=== PATIENT | female | born 1980 | race Two or more races ===

== ENCOUNTER 2017-01-24 18:40 | Emergency (ER) | payer BC ==
[~2017-01-24] VITALS: Ht 167.6 cm; Wt 52.2 kg
[~2017-01-24 18:40] MED LIST: NORE1TAB56 PO
[2017-01-24 18:53] VITALS: BP_SYST 94
[2017-01-24] MEDS ORDERED: KETOROLAC TROMETHAMINE 30 MG VIAL IVP ONE (19:45)
[2017-01-24 19:53] LABS: HEMATOCRIT 38.2 % (36-48); HEMOGLOBIN 12.6 g/dL (12.0-16.0); MEAN CORPUSCULAR HEMOGLOBIN 28 pg (27-31); MEAN CORPUSCULAR HGB CONC 33 % (32-36); MEAN CORPUSCULAR VOLUME 83 fL (79.0-98.0); PLATELET COUNT (AUTO) 229 K/uL (130-430); RED BLOOD CELL COUNT(AUTO) 4.58 MIL/uL (4.2-6.2); RED CELL DISTRIBUTION WIDTH 11.3 % (9.0-15.0); WHITE BLOOD COUNT (AUTO) 4.9 K/uL (4.8-10.8)
[2017-01-24 19:57] LABS: BILIRUBIN,URINE NEGATIVE (NEGATIVE); BLOOD, URINE 2+ (NEGATIVE); CLARITY/URINE HAZY (CLEAR); COLOR,URINE YELLOW (YELLOW); GLUCOSE,URINE NEGATIVE (NEGATIVE); KETONES,URINE NEGATIVE (NEGATIVE); LEUKOCYTE ESTERASE ,URINE 1+ (NEGATIVE); NITRITE, URINE NEGATIVE (NEGATIVE); PROTEIN URINE NEGATIVE (NEGATIVE); UROBILINOGEN,URINE 0.2 (0.2-1.0)
[2017-01-24 20:04] LABS: CREATININE 0.93 mg/dL (0.55-1.30); POTASSIUM 3.9 mmol/L (3.5-5.1)
[2017-01-24 20:09] LABS: ALBUMIN 3.8 g/dL (3.4-4.8); TOTAL BILIRUBIN 0.3 mg/dL (0.0-1.0); TOTAL PROTEIN, SERUM 7.4 g/dL (6.4-8.3)
[2017-01-24 20:14] LABS: BACTERIA,URINE FEW /HPF (None Seen); MUCUS,URINE 1+ /LPF (None Seen); WBC,URINE 20-50 /HPF (0-3)
[2017-01-24 20:27] LABS: ATYPICAL LYMPHOCYTES % 0 % (0-0); BAND % (MANUAL) 1 % (0-6); BASOPHILS % (MANUAL) 0 % (0-2); EOSINOPHILS % (MANUAL) 1 % (0-7); LYMPHOCYTES % (MANUAL) 64 % (20-46); MONOCYTES % (MANUAL) 5 % (0-11)
[2017-01-24] MEDS ORDERED: IBUPROFEN 600 MG TABLET PO ONE (21:15)
[2017-01-24 21:20] VITALS: BP_SYST 100
== END 2017-01-24 21:20 | disposition home or self-care (01) ==
LOC: SED 18:40
DX: N39.0 Urinary tract infection, site not specified (principal); Z88.8 Allergy status to other drugs, medicaments and biological substances
CPT/HCPCS: 36415; 76830; 76857; 80053; 81000; 85007; 85027; 87086; 96374; 99285; J1885

== ENCOUNTER 2018-05-13 05:39 | Emergency (ER) | payer BC ==
[~2018-05-13] VITALS: Ht 167.6 cm; Wt 49.9 kg
[2018-05-13 05:45] VITALS: BP_SYST 117
--- NOTE | 2018-05-13 05:45 | NUR ---
Patient to ER bed 8 to gown for evaluation. Side rails up.
[2018-05-13] MEDS ORDERED: NACL 0.9% 1,000 ML IV ONE (05:47)
--- NOTE | 2018-05-13 05:47 | NUR ---
Patient AAOx4, brought in by family via wheelchair. Patient states having a main complaint of gradual onset of left sided abdominal pain with current pain scale 10/10 since earlier this evening. Patient denies nausea, vomiting, and diarrhea at this time. Patient states "I have problems with chronic constipation". Abdomen tender on palpation. Patient denies any other complaints.
--- NOTE | 2018-05-13 05:48 | NUR ---
# 20 gauge angiocath placed to left AC. Use of asceptic technique. Opsite placed over site. Blood return noted. Blood for lab drawn from site. Flushed with 10 cc of normal saline. No evidence of infiltration noted. Patient tolerated well.
--- NOTE | 2018-05-13 05:51 | NUR ---
ER Dr. Miranda at bedside examining patient.
[2018-05-13] MEDS ORDERED: HYDROmorphone 2 MG/ML VIAL IM ONE (06:00)
[2018-05-13] MEDS ORDERED: ONDANSETRON HCL 4 MG/2 ML VIAL IVP ONE (06:00)
[2018-05-13] MEDS ORDERED: LORazepam 2 MG/ML VIAL (FOR ER USE) IVP ONE ×2 (06:00)
--- NOTE | 2018-05-13 06:08 | NUR ---
Pt to CT/cal with tech Becky, for CT of abdomen and pelvis
[2018-05-13] MEDS ORDERED: KETOROLAC TROMETHAMINE 15 MG VIAL IVP ONE (06:15)
--- NOTE | 2018-05-13 06:19 | NUR ---
Patient states "the pain is still there". Patient is guarding her abdomen. Will administer medications as ordered.
[2018-05-13 06:37] LABS: HEMATOCRIT 39.7 % (36-48); HEMOGLOBIN 12.9 g/dL (12.0-16.0); MEAN CORPUSCULAR HEMOGLOBIN 27 pg (27-31); MEAN CORPUSCULAR HGB CONC 33 % (32-36); MEAN CORPUSCULAR VOLUME 83 fL (79.0-98.0); PLATELET COUNT (AUTO) 307 K/uL (130-430); RED BLOOD CELL COUNT(AUTO) 4.79 MIL/uL (4.2-6.2); RED CELL DISTRIBUTION WIDTH 12.2 % (9.0-15.0); WHITE BLOOD COUNT (AUTO) 4.3 K/uL (4.8-10.8)
[2018-05-13 06:44] LABS: CALCIUM 9.4 mg/dL (8.4-11.0)
[2018-05-13 06:49] LABS: ALBUMIN 4.1 g/dL (3.4-4.8); TOTAL BILIRUBIN 0.3 mg/dL (0.0-1.0)
--- NOTE | 2018-05-13 06:56 | NUR ---
Full care of the patient endorsed to day shift RN.
--- NOTE | 2018-05-13 06:56 | NUR ---
Received report from ELIEZER Buenrostro.
[2018-05-13 07:59] LABS: LYMPHOCYTES % (MANUAL) 74 % (20-46)
[2018-05-13 08:00] LABS: BASOPHILS % (MANUAL) 0 % (0-2); EOSINOPHILS % (MANUAL) 0 % (0-7); MONOCYTES % (MANUAL) 3 % (0-11)
--- NOTE | 2018-05-13 08:00 | NUR ---
ER at bedside reviewing findings with patient and significant other.
[2018-05-13 08:06] LABS: ERYTHROCYTE SEDIMENTATION RATE 16 MM/HR (0-20)
[2018-05-13 08:14] LABS: BILIRUBIN,URINE NEGATIVE (NEGATIVE); BLOOD, URINE 1+ (NEGATIVE); CLARITY/URINE CLEAR (CLEAR); COLOR,URINE YELLOW (YELLOW); GLUCOSE,URINE NEGATIVE (NEGATIVE); KETONES,URINE NEGATIVE (NEGATIVE); LEUKOCYTE ESTERASE ,URINE NEGATIVE (NEGATIVE); NITRITE, URINE NEGATIVE (NEGATIVE); PH,URINE 6.5 (5.0-8.0); PROTEIN URINE NEGATIVE (NEGATIVE); UROBILINOGEN,URINE 0.2 (0.2-1.0)
[2018-05-13 08:17] LABS: HCG,QUAL RESULT NEGATIVE (NEGATIVE)
[2018-05-13 08:26] LABS: BACTERIA,URINE FEW /HPF (None Seen); WBC,URINE 0-3 /HPF (0-3)
[2018-05-13 08:27] LABS: MUCUS,URINE 1+ /LPF (None Seen)
--- NOTE | 2018-05-13 08:32 | NUR ---
Patient given written and verbal discharge instructions and verbalizes understanding. ER MD discussed with patient the results and treatment provided. Patient in stable condition. ID arm band removed. IV catheter removed intact and dressing applied, no active bleeding. Rx of Reglan, Ativan, and Miralax given. Patient educated on pain management and to follow up with PMD. Pain Scale 1/10. Opportunity for questions provided and answered.
[2018-05-13 08:35] VITALS: BP_SYST 102
== END 2018-05-13 08:32 | disposition home or self-care (01) ==
LOC: SED 05:39
DX: F41.1 Generalized anxiety disorder (principal); K59.00 Constipation, unspecified; K58.9 Irritable bowel syndrome, unspecified; N83.00 Follicular cyst of ovary, unspecified side; Z90.710 Acquired absence of both cervix and uterus; Z88.8 Allergy status to other drugs, medicaments and biological substances
CPT/HCPCS: 36415; 74176; 76830; 76856; 80053; 81000; 83690; 84703; 85007; 85027; 85651; 96374; 96375; 99285; J1170; J1885; J2060; J2405; J7030